=== PATIENT | male | born 1995 | race Hispanic/Latino ===

== ENCOUNTER 2018-05-15 01:34 | Emergency (ER) | payer SELFPAY ==
[2018-05-15] MEDS ORDERED: TETANUS & DIPHTHERIA TOX,ADULT 0.5 ML VIAL ONE (01:52)
[2018-05-15] MEDS ORDERED: LIDOCAINE 1% MPF 5 ML VIAL ONE (02:12)
[2018-05-15] MEDS ORDERED: FENTANYL CITR 100 MCG/2 ML ONE (02:50)
[2018-05-15] MEDS ORDERED: ONDANSETRON 4 MG/2 ML VIAL ONE (02:54)
[2018-05-15] MEDS ORDERED: CLINDAMYCIN 900MG/D5W 900 MG/50 ML BAG IV ONE (03:56)
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
== END 2018-05-15 04:44 | disposition short-term general hospital (02) ==
LOC: ER 01:34
PROC: 0JQ10ZZ Repair Face Subcutaneous Tissue and Fascia, Open Approach (ICD-10-PCS; principal; 2018-05-15)
DX: S02.81XA Fracture of other specified skull and facial bones, right side, initial encounter for closed fracture (principal); S01.111A Laceration without foreign body of right eyelid and periocular area, initial encounter; Y04.2XXA Assault by strike against or bumped into by another person, initial encounter; Y93.9 Activity, unspecified; Y92.89 Other specified places as the place of occurrence of the external cause; Z23 Encounter for immunization
CPT/HCPCS: 70450; 70486; 76377; 90714; 96365; 96375; 99285; J2405; J3010